=== PATIENT | female | born 1975 | race Caucasian/White ===

== ENCOUNTER → 2017-12-16 13:23 | Outpatient (CLI) | payer OTHER, SELFPAY ==
--- NOTE | 2017-12-16 | DI.MG.S_ITS ---
BILATERAL DIGITAL SCREENING MAMMOGRAM 3D/2D WITH CAD: 12/16/2017 CLINICAL: Routine screening. No prior exams were available for comparison. The tissue of both breasts is extremely dense, which lowers the sensitivity of mammography. Current study was also evaluated with a Computer Aided Detection (CAD) system. No significant masses, calcifications, or other findings are seen in either breast. IMPRESSION: NEGATIVE There is no mammographic evidence of malignancy. A 1 year screening mammogram is recommended. This exam was interpreted at Station ID: [id number]. NOTE: For mammograms, a report in lay terms will be sent to the patient. Approximately 15% of breast malignancies will not be visualized mammographically. In the management of a palpable breast mass, a negative mammogram must not discourage biopsy of a clinically suspicious lesion. Electronically Signed By: Tucker varghese/aelxy:12/16/2017 14:33:49 copy to: Lillie Orozco md, [facility] letter sent: Normal Exam ACR BI-RADS Category 1: Negative 3341F
== END ==
PROVIDERS: Family Provider Family Medicine; Visit Provider Family Medicine
DX: Z12.31 Encounter for screening mammogram for malignant neoplasm of breast (principal)
CPT/HCPCS: 77063; 77067

== ENCOUNTER → 2019-06-05 10:58 | Outpatient (CLI) | payer OTHER, SELFPAY ==
--- NOTE | 2019-06-05 | DI.RAD.S_ITS ---
PROCEDURE: XR CHEST 2V INDICATIONS: Other chest pain TECHNIQUE: 2 views of the chest were acquired. COMPARISON: None. FINDINGS: Surgical changes and devices: None. Lungs and pleura: Lungs are clear. No pleural effusions or pneumothorax. Mediastinum: Mediastinal contours are normal. Heart size is normal. Bones and chest wall: No suspicious bony abnormalities. Soft tissues appear unremarkable. IMPRESSION: No acute pulmonary process. Dictated by: Kaci Kim M.D. on 06/05/2019 at 16:10 Approved by: Kaci Kim M.D. on 06/05/2019 at 16:10
== END ==
PROVIDERS: Family Provider Family Medicine; PCP Family Medicine; Visit Provider Family Medicine
DX: R07.89 Other chest pain (principal)
CPT/HCPCS: 71046

== ENCOUNTER → 2020-03-08 11:34 | Outpatient (CLI) | payer OTHER, SELFPAY ==
[2020-03-09 19:07] LABS: COVID19 Sendout Not Detected (Not Detect)
== END ==
PROVIDERS: Family Provider Family Medicine; PCP Family Medicine; Visit Provider Physician Assistant
DX: Z11.59 Encounter for screening for other viral diseases (principal)
CPT/HCPCS: 87635

== ENCOUNTER 2020-03-11 08:47 | Day surgery (SDC) | payer OTHER, SELFPAY ==
--- NOTE | 2020-03-11 | PATH_ITS ---
[facility] Accession Number: [id number] . 01 Material submitted: . PART A: duodenum - DUODENUM PART B: stomach - STOMACH PART C: esophagus - DISTAL ESOPHAGUS . 02 Diagnosis: A. Duodenum, Biopsy: Duodenal mucosa with no diagnostic abnormality. Negative for active inflammation, features of sprue, dysplasia, or malignancy. . B. Stomach, Biopsy: Antral mucosa with mild chronic gastritis. Negative for Helicobacter by immunohistochemistry. Negative for intestinal metaplasia. Negative for dysplasia and malignancy. . C. Distal Esophagus, Biopsy: Squamocolumnar junctional mucosa with no diagnostic abnormality. Negative for intestinal metaplasia. Negative for dysplasia and malignancy. [facility] 03/15/2020 1641 Local . 02 Electronically signed: . Naheed Vega MD, Pathologist NPI- [id number] . 01 Gross description: . Part A: DUODENUM: Received in formalin are 2 fragment(s) of delacruz, soft tissue measuring 0.3 x 0.2 x 0.2 cm to 0.1 x 0.1 x 0.1 cm submitted entirely in 1 cassette(s) Part B: STOMACH: Received in formalin are 2 fragment(s) of delacruz, soft tissue measuring 0.4 x 0.1 x 0.1 cm to 0.3 x 0.2 x 0.2 cm submitted entirely in 1 cassette(s) Part C: DISTAL ESOPHAGUS: Received in formalin is 1 fragment(s) of delacruz, soft tissue measuring 0.3 x 0.2 x 0.2 cm submitted entirely in 1 cassette(s) /QBJ 03/12/2020 0710 Local . 02 Microscopic: . B. An immunohistochemical stain was performed to evaluate for Helicobacter organisms and is negative. The control stain showed appropriate reactivity. . C. An Alcian blue stain was performed to evaluate for intestinal metaplasia and is negative. The control stain showed appropriate reactivity. . * This test was developed and its performance characteristics determined by [facility]. It has not been cleared or approved by the U.S. Food and Drug Administration. The FDA has determined that such clearance or approval is not necessary. This test is used for clinical purposes. It should not be regarded as investigational or for research. . 02 Pathologist provided ICD-10: R10.13 . 02 CPT . 401139, 216724, 598942, 934133, [id number] Performed at: 01 [facility] [address] [place] [address], [place], [place] [id number] MD Tucker Francisco MD Phone: [phone] Performed at: 02 [facility] [id number] [place] [id number] MD Naheed Vega MD Phone: [phone]
--- NOTE | 2020-03-11 08:58 | PM.PREOP ---
Pre-operative Note COVID-19 COVID-19 status: Negative Result date/Date tested (Pos, Neg/Pending): 03/08/20 Interval Note History & Physical reviewed/Exam performed by Physician: Yes Changes to H&P: No ASA Class (for procedural sedation): I
[2020-03-11 09:03] VITALS: BP 117/81; PULSE 65; RESP 18; TEMP 36.7; O2SAT 99; BMI 25.2
--- NOTE | 2020-03-11 09:30 | PM.OP.ENDO ---
Operative Date/Time/Diagnoses Date of procedure: 03/11/20 Time of procedure: 09:30 Pre-op diagnosis: Epigastric pain, heartburn Post-op diagnosis: other (Mild gastritis, low-grade hiatal hernia, mild esophagitis) Procedure & Clinicians Study performed: EGD with cold forceps biopsies of duodenum stomach and this esophagus Same procedure as scheduled: Yes Indications: Epigastric pain, heartburn Surgeon: Irma Da Silva Procedure Notes SCOAP/Timeout: Performed Procedure in detail: The patient was brought to the room and placed in left lateral decubitus position with all bony prominences padded. A bite block was positioned in the patient's mouth to protect the lips, teeth, and tongue for the procedure. A time-out was performed and then the patient was given procedural sedation starting with 2 mg of Versed and 100 mcg of fentanyl. Total of 3 mg of Versed and 100 micro g of fentanyl were given for the entire procedure. Vitals were monitored throughout the procedure and remained stable. Once adequately sedated, the procedure was begun. The lubricated gastroscope was passed through the bite block and across the tongue and into the esophagus without incident. A tubular view of the esophagus was maintained as the scope was advanced through the esophagus and into the stomach. The scope was advanced through the stomach and to the pylorus. The scope was gently popped through the pylorus and into the duodenal bulb. The scope was flexed and advanced into the second and third portions of the duodenum. The duodenum and duodenal bulb appeared normal. The scope was withdrawn into the stomach. The stomach showed evidence of ecod-to-ihlgubbh endoscopic gastritis, with no ulcers or active bleeding. The scope was retroflexed and the gastric cardia was examined. The hiatus showed evidence of a low-grade hiatal hernia, Hill grade 1-2 without any ulceration. The scope was then straightened, and withdrawn into the esophagus. The Z-line had no breaks in it. The distal esophageal mucosa appeared intact. Biopsies were taken of the duodenum, stomach, distal esophagus. The scope was then withdrawn through the esophagus with a tubular view. The scope was then withdrawn from the patient the procedure was concluded. The patient tolerated the procedure well and was transferred to the PACU in stable condition. Sedation minutes: 8 Findings: gastritis and hiatal hernia (Low-grade, Hill grade 1-2) Specimen(s): other (Biopsy of duodenum, stomach, distal soft) Impression: Moderate gastritis, low-grade distal esophagitis, low-grade hiatal hernia Post-procedure Recommendations: Start medication(s) (Omeprazole 20 mg b.i.d.) Plan for aftercare: Start PPI. Follow-up in 2 week to discuss biopsy results. Follow up: weeks (2) Disposition: PACU
[2020-03-11 09:43] VITALS: BP 105/75; PULSE 65; RESP 8; TEMP 36.4; O2SAT 94
[2020-03-11] MEDS: MIDAZOLAM 5 MG/5 ML VIAL IV (09:43)
[2020-03-11] MEDS: LIDOCAINE 4% SOLN 50 ML 20 ML TOP (09:44)
[2020-03-11] MEDS: fentaNYL 250 MCG/5 ML INJ IV (09:44)
[2020-03-11 09:48] VITALS: BP 98/67; PULSE 61; RESP 8; TEMP 36.4; O2SAT 94
[2020-03-11 09:53] VITALS: BP 93/64; PULSE 94; RESP 9; TEMP 36.3; O2SAT 95
[2020-03-11 10:04] VITALS: BP 105/76; PULSE 56; RESP 12; TEMP 35.8; O2SAT 96
[2020-03-11 10:48] VITALS: BP 108/69; PULSE 62; RESP 14; TEMP 36.4; O2SAT 100
== END 2020-03-11 10:55 | disposition home or self-care (01) ==
PROVIDERS: Family Provider Family Medicine; PCP Family Medicine; Referring Provider Family Medicine; Visit Provider Surgery
PROC: 0DJ08ZZ Inspection of Upper Intestinal Tract, Via Natural or Artificial Opening Endoscopic (ICD-10-PCS; CPT 43235; principal; 2020-03-11 10:00)
DX: K29.50 Unspecified chronic gastritis without bleeding (principal); K20.9 Esophagitis, unspecified; K44.9 Diaphragmatic hernia without obstruction or gangrene
CPT/HCPCS: 43239; 99152; J2250; J3010

== ENCOUNTER → 2022-02-22 13:51 | Outpatient (CLI) | payer OTHER, SELFPAY ==
--- NOTE | 2022-02-22 | DI.US.S_ITS ---
PROCEDURE: US PELVIC COMPLETE INDICATIONS: Dysmenorrhea, unspecified TECHNIQUE: Real-time scanning was performed of the pelvic organs, with image documentation. Additional endovaginal scanning was necessary due to incomplete visualization of the adnexal and endometrial structures by transabdominal scanning. COMPARISON: [facility], CT, CT ABDOMEN PELVIS WITH CONTRAST, 02/08/2020, 17:33. FINDINGS: Uterus: Uterus is anteverted and normal in size at 8.5 x 5.1 x 4.1 cm. The myometrium is homogeneous. 2 sub 5 mm myometrial cyst. The endometrium measures 7.1 mm combined thickness. Ovaries: The right ovary measures 3.5 x 2.6 x 1.2 cm, with a calculated ovarian volume of 5.7 cc. The left ovary measures 3.0 x 2.9 x 1.1 cm, with a calculated ovarian volume of 5.0 cc. The ovaries have a normal sonographic appearance. Less than 12 follicles can be seen in each ovary. No adnexal masses are seen. Other: No pathologic free abdominal or pelvic fluid. IMPRESSION: 1. No source for dysmenorrhea identified. 2. 2 sub 5 mm myometrial cyst. 3. Normal appearance of the ovaries bilaterally. We strive to produce accurate, complete, and clear reports of imaging services. To assist us in improving patient care, this report was composed using standard report templates and voice recognition software. Therefore, it may contain abnormal punctuation, insertions and/or omissions. Occasional wrong-word or sound-alike substitutions may occur. Though we review the report and make efforts to correct it, we do recommend that the report be read carefully in proper context to recognize any text inaccuracies. Dictated by: Alberto MARCANO Interpreted: Kaci Kim MD on 02/22/2022 at 15:44 Transcribed by: YANNA on 02/22/2022 at 15:45 Approved by: Kaci Kim M.D. on 02/22/2022 at 17:28
== END ==
PROVIDERS: Family Provider Family Medicine; PCP Family Medicine; Referring Provider Family Medicine; Visit Provider Family Medicine
DX: N94.6 Dysmenorrhea, unspecified (principal); N85.8 Other specified noninflammatory disorders of uterus
CPT/HCPCS: 76830; 76856

== ENCOUNTER → 2022-10-10 09:44 | Outpatient (CLI) | payer OTHER, SELFPAY ==
--- NOTE | 2022-10-10 09:47 | DI.RAD.S_ITS ---
PROCEDURE: XR CERVICAL SPINE 2V OR 3V INDICATIONS: neck pain TECHNIQUE: 3 view(s) of the cervical spine were acquired. COMPARISON: None. FINDINGS: Bones: No fractures or dislocations to the C1 level. The lateral masses of C1 appear intact on the odontoid view. No suspicious bony lesions. Minimal spondylitic change. Soft tissues: No prevertebral soft tissue swelling. IMPRESSION: Minimal spondylitic change. Dictated by: Sagar Jaramillo M.D. on 10/10/2022 at 12:09 Approved by: Sagar Jaramillo M.D. on 10/10/2022 at 12:09
== END ==
PROVIDERS: Family Provider Family Medicine; PCP Family Medicine; Referring Provider Family Medicine; Visit Provider Family Medicine
DX: M54.2 Cervicalgia (principal)
CPT/HCPCS: 72040

== ENCOUNTER → 2023-05-16 10:21 | Outpatient (CLI) | payer OTHER, SELFPAY ==
--- NOTE | 2023-05-16 | DI.US.S_ITS ---
PROCEDURE: US THYROID INDICATIONS: NONTOXIC GOITER TECHNIQUE: Real-time scanning was performed of the thyroid gland, with image documentation. COMPARISON: None. FINDINGS: Right: Thyroid lobe measures 5.5 x 1.6 x 1.7 cm, and is homogeneous in echotexture. Left: Thyroid lobe measures 4.6 x 1.5 x 1.8 cm, and is homogenous in echotexture. Isthmus: 2.0 mm thick. No thyroid nodules or masses are demonstrated. IMPRESSION: Normal thyroid ultrasound. ACR TI-RADS definitions and recommendations: TI-RADS 1 (benign): 0 points. FNA not needed. TI-RADS 2 (not suspicious): 2 points. FNA not needed. TI-RADS 3 (mildly suspicious): 3 points. * FNA if 2.5 cm or larger, follow up if 1.5 cm or larger (at 1, 3, and 5 years). TI-RADS 4 (moderately suspicious): 4-6 points. * FNA if 1.5 cm or larger, follow up if 1 cm or larger (at 1, 2, 3, and 5 years). TI-RADS 5 (highly suspicious): 7 points or more. * FNA if 1 cm or larger, follow up if 0.5 cm or larger (every year for 5 years). Dictated by: Mounika Garduno MD, PhD on 05/16/2023 at 13:20 Approved by: Mounika Garduno MD, PhD on 05/16/2023 at 13:21
== END ==
PROVIDERS: Family Provider Family Medicine; PCP Family Medicine; Referring Provider Family Medicine; Visit Provider Family Medicine
DX: E04.9 Nontoxic goiter, unspecified (principal)
CPT/HCPCS: 76536

== ENCOUNTER → 2024-12-10 17:20 | Outpatient (CLI) | payer OTHER, SELFPAY ==
--- NOTE | 2024-12-10 17:26 | DI.MG.S_ITS ---
MM screening mammo BI: 12/10/2024. BI-RADS: 1 CLINICAL: 49-year old female for bilateral screening mammogram. Tyrer-Cuzick lifetime risk of 11.2%. No personal or first-degree family history of breast cancer. PRIOR EXAMS 12/16/2017. MAMMOGRAPHY TECHNIQUE: 2D and 3D (tomosynthesis) digital mammographic views obtained, with additional images as needed for full coverage. Current study was also evaluated with a Computer Aided Detection (CAD) system. DENSITY C. The breasts are heterogeneously dense, which may obscure small masses. MAMMOGRAPHY FINDINGS Bilateral: No suspicious mass, asymmetry, microcalcification, or other abnormality seen. IMPRESSION: * No evidence of malignancy. RECOMMENDATIONS Bilateral * Annual screening mammography. OVERALL ASSESSMENT CATEGORY BI-RADS-1: Negative. The [employer] recommends annual screening mammography beginning at age 40 for women with average risk of breast cancer. ELECTRONICALLY SIGNED: Ismael Wang M.D. on 12/11/2024 at 07:59:10 AM PT Interpreting Station ID: [id number]
== END ==
PROVIDERS: Family Provider Family Medicine; PCP Family Medicine; Referring Provider Family Medicine; Visit Provider Family Medicine
DX: Z12.31 Encounter for screening mammogram for malignant neoplasm of breast (principal); R92.333 Mammographic heterogeneous density, bilateral breasts
CPT/HCPCS: 77063; 77067

== ENCOUNTER 2025-07-09 23:02 | Emergency (ER) | payer OTHER, SELFPAY ==
[2025-07-09 23:04] VITALS: BP 120/78; PULSE 95; RESP 18; TEMP 36.6; O2SAT 97; BMI 27.3
[2025-07-09 23:31] LABS: Culture Indicated Urine Cult Not Indicated
[2025-07-10 00:21] VITALS: BP 121/83; PULSE 92; RESP 16; O2SAT 93
[2025-07-10 00:30] VITALS: BP 118/84; PULSE 90; RESP 14; O2SAT 95
[2025-07-10 00:37] LABS: Add Manual Diff / Slide Review NO; Hematocrit 39.8 % (36-46); Hemoglobin 13.8 g/dL (12.0-16.0); Lymphocytes Absolute Auto 3000 /uL (1100-4500); Mean Corpuscular HGB Conc 34.6 % (30-36); Mean Corpuscular Hemoglobin 31.1 PG (26-34); Mean Corpuscular Volume 89.9 fL (80-100); Platelet Count 302 X10^3/uL (150-400)
[2025-07-10 01:00] LABS: Alanine Aminotransferase 28 IU/L (<35); Albumin 4.4 g/dL (3.5-5.0); Albumin Globulin Ratio 1.3 (1.0-2.8); Alkaline Phosphatase 72 U/L (38-126); Blood Urea Nitrogen 13 mg/dL (7-17); Calcium 9.1 mg/dL (8.4-10.2); Carbon Dioxide 21 mmol/L (22-32); Chloride 107 mmol/L (98-107); Estimated Glomerular Filt Rate > 60 mL/min (>60); Globulin 3.5 g/dL (1.7-4.1); Glucose 122 mg/dL (70-99); HEMOLYSIS < 15 (0-50); Lipase 57 U/L (23-300); Potassium 3.7 mmol/L (3.4-5.1); Sodium 139 mmol/L (137-145); Total Protein 7.9 g/dL (6.3-8.2)
--- NOTE | 2025-07-10 01:03 | ED_ITS ---
HPI - Abdominal Pain General Chief Complaint: Abdominal Pain Stated Complaint: Lower abd pain Time Seen by Provider: 07/09/25 23:13 Source: patient Mode of arrival: Ambulatory History of Present Illness HPI narrative: 49-year-old female with history of remote cholecystectomy, no other abdominopelvic surgeries recalled, no history of kidney stones, not currently on antibiotics, complains of right greater than left lower abdominal discomfort, not associated with frequency or painful urination, no flank or back pain, no cough chest pain shortness of breath, no fevers or chills. History of gastritis, prescribed omeprazole in the past, noted on triage med list if still current. No history of colitis or diverticulitis of the colon recalled, no history of Crohn's disease or inflammatory bowel disease on problem list. No injury trauma or new activities. Related Data Home Medications ?Medication ?Instructions ?Recorded ?Confirmed ascorbic acid (vitamin C) 100 mg 100 mg PO DAILY 09/0306/28/20 tablet clxhvyb-isrxgypnofkit-dxgemvrp 250 2 tab PO Q6H PRN Ab dominal 09/03/19 06/28/20 mg-250 mg-65 mg tablet (Excedrin Discomfort Extra Strength) famotidine 10 mg tablet (Pepcid AC) 10 mg PO DAILY 01/1506/28/20 omega-3 fatty acids 1,000 mg 1,000 mg PO DAILY 0 06/28/20 capsule (Fish Oil Concentrate) propranolol 80 mg capsule,24 80 mg PO DAILY 09/03/19 1 08/29/19 hr,extended release Previous Rx's ?Medication ?Instructions ?Recorded omeprazole 40 mg capsule,delayed 40 mg PO DAILY #30 ca ps 03/14/20 release cefdinir 300 mg capsule 300 mg PO BID 10 days #20 ca ps 07/10/25 Allergies Allergy/AdvReac Type Severity Reaction Status Date / Time No Known Drug Allergies Allergy Verified 07/09/25 23:04 Patient History Medical History (Updated 07/10/25 @ 02:27 by Timbo Andrade MD) Migraine Surgical History Hx of cholecystectomy Family History Father Hypertension Social History marital status: household members: spouse and children occupational status: employed Smoking Status: Never smoker alcohol intake: never substance use type: does not use Smoking Status: Never smoker Exam Narrative Exam Narrative: GENERAL: Well-developed patient, in mild distress. HEAD: Atraumatic. Normocephalic. EYES: Pupils equal round and reactive. Extraocular motions intact. No scleral icterus. No injection or drainage. ENT: No obvious craniofacial injuries or redness or swelling. Moves neck well. CARDIOVASCULAR: Regular rate and rhythm without murmurs, gallops, or rubs. RESPIRATORY: Clear to auscultation. Breath sounds equal bilaterally. No wheezes, rales, or rhonchi. GASTROINTESTINAL: Nondistended, some tenderness right lower quadrant, less tenderness left lower quadrant but some present. Suprapubic area discomfort on palpation. No guarding or rebound tenderness. Bowel tones unremarkable, without rushes or tinkles. EXTREMITIES: No edema or joint tenderness. BACK: Nontender without deformity or crepitance. No flank tenderness. NEURO: AOx3. Motor functions grossly nonfocal. SKIN: No rash or erythema of visible areas Initial Vital Signs Initial Vital Signs: Vital Signs Temperature 97.8 F 07/09/25 23:04 Pulse Rate 95 H 07/09/25 23:04 Respiratory Rate 18 07/09/25 23:04 Blood Pressure 120/78 07/09/25 23:04 Pulse Oximetry 97 07/09/25 23:04 Oxygen Delivery Method Room Air 07/09/25 23:04 Course Orders Ordered: ED Orders 07/09/25 23:10 Complete Blood Count AUTO DIFF Stat Comprehensive Metabolic Panel Stat Lipase Stat Urine Culture Stat Urine Microscopic Stat EKG-12 Lead Stat 07/10/25 01:15 CT abdomen pelvis w con Stat Discontinued Medications Hydrocodone Bitart/Acetaminophen (Hydrocodone/Acet 5/325 Prepack) 1 bottle MISC DIRECTED ONE Stop: 07/10/25 02:42 Last Admin: 07/10/25 02:45 Dose: 1 bottle Documented By: URIAH Ceftriaxone Sodium 1,000 mg/ (Sodium Chloride) 100 mls @ 200 mls/hr IV NOW ONE Stop: 07/10/25 00:01 Last Infusion: 07/10/25 01:01 Dose: Infused Documented By: Admin: 07/10/25 00:27 Dose: 200 mls/hr Documented By: URIAH Sodium Chloride (Normal Saline 0.9%) 1,000 mls @ 1,000 mls/hr IV BOLUS ONE Stop: 07/10/25 02:28 Last Infusion: 07/10/25 02:43 Dose: Infused Documented By: Admin: 07/10/25 01:42 Dose: 1,000 mls/hr Documented By: URIAH Ondansetron HCl (Ondansetron 4 Mg/2 Ml Inj) 4 mg IV NOW PRN PRN Reason: Nausea And Vomiting Ondansetron HCl (Ondansetron 4 Mg Odt) 4 mg PO NOW PRN PRN Reason: Nausea And Vomiting Ondansetron HCl (Ondansetron 4 Mg Odt Prepack) 1 bottle MISC DIRECTED ONE Stop: 07/10/25 02:42 Last Admin: 07/10/25 02:45 Dose: 1 bottle Documented By: URIAH Vital Signs Vital signs: Vital Signs - 8 hr 07/09/25 23:04 07/10/25 00:21 07/10/25 00:21 Temperature 97.8 F Pulse Rate 95 H 92 H Respiratory Rate 18 16 Blood Pressure 120/78 121/83 Pulse Oximetry 97 93 Oxygen Delivery Method Room Air Room Air 07/10/25 00:30 07/10/25 00:30 Temperature Pulse Rate 90 Respiratory Rate 14 Blood Pressure 118/84 Pulse Oximetry 95 Oxygen Delivery Method Room Air MDM - Abdominal Pain Lab Data Attestation: I reviewed the patient's lab results. Lab results narrative: White blood cell count 72921, hemoglobin 13.8, platelets adequate. Glucose 122. Normal renal function, electrolytes, with serum CO2 21 slight decreased. Urinalysis shows bacteriuria, no squamous cells, no red cells, no white cells, leukocyte esterase was positive, no lab trigger for urine culture but urine culture was requested. 07/10/25 00:21 07/10/25 00:21 Labs: Lab Results 07/09/25 07/10/25 Range/Units 23:10 00:21 WBC 19.2 H (4.5-11.0) X10^3/uL RBC 4.43 (4.0-5.2) X10^6/uL Hgb 13.8 (12.0-16.0) g/dL Hct 39.8 (36-46) % MCV 89.9 (80-100) fL MCH 31.1 (26-34) PG MCHC 34.6 (30-36) % RDW 12.5 (11.6-14.8) % Plt Count 302 (150-400) X10^3/uL Neut % (Auto) 74.8 (50-75) % Lymph % (Auto) 15.4 L (25-40) % [place] % (Auto) 8.3 (3-14) % Eos % (Auto) 0.8 L (2-4) % Baso % (Auto) 0.7 (0-2) % Neut # (Auto) 33112 H (0000-6373) /uL Lymph # (Auto) 3000 (5392-3364) /uL [place] # (Auto) 1600 H (0-900) /uL Eos # (Auto) 100 (0-450) /uL Baso # (Auto) 100 (0-100) /uL Sodium 139 (137-145) mmol/L Potassium 3.7 (3.4-5.1) mmol/L Chloride 107 (98-107) mmol/L Carbon Dioxide 21 L (22-32) mmol/L BUN 13 (7-17) mg/dL Creatinine 0.71 (0.52-1.04) mg/dL Estimated GFR > 60 (>60) mL/min BUN/Creatinine Ratio 18.3 (6-22) Glucose 122 H (70-99) mg/dL Calcium 9.1 (8.4-10.2) mg/dL Total Bilirubin 0.8 (0.2-1.3) mg/dL AST 27 (14-36) IU/L ALT 28 (<35) IU/L Alkaline Phosphatase 72 (38-126) U/L Total Protein 7.9 (6.3-8.2) g/dL Albumin 4.4 (3.5-5.0) g/dL Globulin 3.5 (1.7-4.1) g/dL Albumin/Globulin Ratio 1.3 (1.0-2.8) Lipase 57 (23-300) U/L Urine RBC None seen (0-5/HPF) Urine WBC 5-10/hpf H (0-5/HPF) Ur Squamous Epith Cells 0-1 /hpf (0-5/HPF) Urine Bacteria Moderate (10-30) H (None) Ur Culture Indicated? Cult not indicated Vol Urine Centrifuged 10ml (spun) Point of care testing: Point of Care Testing Test Results Negative Urine Dip Bedside Urine Glucose Negative Bedside Urine Bilirubin - Negative Bedside Urine Ketone - Negative Urine Specific [place] 1.010 Bedside Urine Occult Blood - Negative Bedside Urine pH 6.5 Bedside Urine Protein - Negative Bedside Urine Urobilinogen - Negative Bedside Urine Nitrite - Negative Bedside Urine Leukocytes + [address] scan - abdomen/pelvis: Radiologist's Impression: Eda Ortiz??49??F??1975 ? Allergy/Adv: No Known Drug Allergies [address] [address] [address] Scan Report Signed Patient: Eda Ortiz MR#: [id number] : 1975 Acct:[id number] Age/Sex: 49 / F Date of Service: 07/10/25 Loc: ED Accession Number: [id number] Procedure: CT abdomen pelvis w con Ordering Provider: Timbo Andrade MD PROCEDURE: CT ABDOMEN PELVIS W CON INDICATIONS: lower abd pain TECHNIQUE: After the administration of intravenous contrast, axial sections acquired from the lung bases to the pubic symphysis. Coronal and sagittal reformats were performed. For radiation dose reduction, the following was used: automated exposure control, adjustment of mA and/or kV according to patient size. COMPARISON: None. FINDINGS: Image quality: Diagnostic. Lower Chest: No significant findings. ABDOMEN: Liver: No solid mass. Gallbladder: Absent. Surgical clips along the inferior margin of the right hepatic lobe. Biliary ducts: No biliary dilation. Pancreas: No ductal dilation. Spleen: Size is within normal limits. Adrenal Glands: No adrenal nodules. Kidneys and Ureters: No hydronephrosis. No solid mass. No complex renal cystic lesion which requires follow up. Punctate nonobstructing right-sided nephrolithiasis. Stomach and Bowel: Normal colonic caliber, without significant wall thickening. Fecal debris within the small bowel. Normal appendix. No significant diverticular disease. Peritoneum: No abnormal intraperitoneal fluid. No free air. Ventral Wall: No significant ventral hernia. Abdominal Nodes: No retroperitoneal or mesenteric adenopathy by size criteria. Vessels: Aorta and inferior vena cava are normal in size. PELVIS: Pelvic Organs: Unremarkable. Bladder: No bladder wall thickening, accounting for underdistention. Pelvic Nodes: No enlarged lymph nodes. Miscellaneous: No inguinal hernias are seen. Bones: No aggressive osseous abnormality. IMPRESSION: No acute abnormality. No significant diverticular disease. Normal appendix. Absent gallbladder. No hydronephrosis. Punctate nonobstructing right-sided nephrolithiasis. Dictated by: Ranjit Jackson M.D. on 07/10/2025 at 1:56 Approved by: Ranjit Jackson M.D. on 07/10/2025 at 1:[address] [facility] Narrative Medical decision making narrative: 49-year-old female with lower abdominal discomfort, afebrile on triage, right lower quadrant mild tenderness, more so than left lower quadrant tenderness. Afebrile, sirs screen negative. No CVA region tenderness, lungs clear. IV ceftriaxone after urine culture requested, coverage for urinary tract infection if present. DX consider UTI, obstructing ureteral stone, complicated urinary tract infection, appendicitis, colitis, diverticulitis, PID, ovarian cyst/rupture, ovarian torsion, other. Pain medication offered, declined for now. Keep NPO for now. Lab data: White blood cell count 39411, hemoglobin 13.8, platelets adequate. Glucose 122. Normal renal function, electrolytes, with serum CO2 21 slight decreased. Urinalysis shows bacteriuria, no squamous cells, no red cells, no white cells, leukocyte esterase was positive, no lab trigger for urine culture but urine culture was requested. White blood cell count 19,000 elevated, IV ceftriaxone given for possible urinary tract infection, we discussed advanced imaging, CT abdomen and pelvis imaging to screen for obstructing urinary stone or some other acute abdominopelvic process. CT shows no acute process, there was mentioned of right-sided kidney stone punctate only in size, no hydroureter. See radiology report. It is possible there could have been another punctate small right-sided kidney stone that has recently passed. Urine suspicious for infection, not otherwise complicated. White blood cell count a bit elevated, we will treat for upper tract infection. IV ceftriaxone given prior. We will send prescription to requested pharmacy for cefdinir 10 day course. Recheck with PCP on [facility] on Saturday advised, to check urine culture and review of her symptoms. Home pack of hydrocodone/APAP to use as needed for pain control. Home pack of ODT ondansetron to use as needed for nausea control. Discharged home with , they will returned to home [facility] on later this morning. Follow up with PCP Saturday on [facility] as advised above. Return to this/nearest emergency department for any change worsening symptoms or any concerns prior. Discharge Plan Departure Patient Disposition: Home Clinical Impression: Urinary tract infection, Nephrolithiasis Instructions: DI for Kidney Stones, DI for Urinary Tract Infection (UTI) Activity Restrictions/Additional Instructions: Lower abdominal discomfort, no fever, no known trauma. Some tenderness to the right lower quadrant abdomen, but also some to the left lower quadrant. Urine dip positive suspicious for infection, subsequent urinalysis evaluation by laboratory was suspicious for possible infection, urine culture was requested. IV antibiotics initiated ceftriaxone for possible urine infection was initiated. White blood cell count was found to be elevated, we discussed advanced imaging, CT scan abdomen and pelvis was ordered. There was no definite acute process identified by the CT scan, however there was mentioned of a punctate kidney stone within the right kidney, but no obstructing stone or process within the contiguous ureter between the kidney in the bladder on that side. There was no mentioned of any bowel obstruction, bowel inflammation, constipation, pelvic process of concern. It could theoretically be possible that you might have passed another small punctate stone causing some of your discomfort, that did not cause dilation of the ureter, and would not likely be visible in the bladder, or might have already been passed out of the bladder. We will treat for upper tract urine infection for now with broader spectrum and longer course of oral antibiotic, given your elevated white blood cell count, which would not be expected with simple bladder infection. Antibiotic cefdinir prescription sent to your requested pharmacy, 10 day course, take antibiotics as directed, drink plenty of fluids. Consider use of [id number] Tylenol and or Motrin as needed for pain control. If you need additional pain control, or control of any nausea, home pack of hydrocodone/acetaminophen was provided, and home pack of oral dissolvable formulation ondansetron was provided. Recheck symptoms with your regular doctor on Saturday, your urine culture results should be available at that time. Return to this/nearest emergency department for any change worsening symptoms or any concerns prior. Prescriptions: New cefdinir 300 mg capsule 300 mg PO BID 10 Days Qty: 20 0RF No Action omeprazole 40 mg capsule,delayed release(DR/EC) 40 mg PO DAILY Qty: 30 3RF ascorbic acid (vitamin C) 100 mg tablet 100 mg PO DAILY omega-3 fatty acids [Fish Oil Concentrate] 1,000 mg capsule 1,000 mg PO DAILY propranolol 80 mg capsule,extended release 24 hr 80 mg PO DAILY Excedrin Extra Strength 250-250-65 mg tablet 2 tab PO Q6H PRN (Reason: Abdominal Discomfort) famotidine [Pepcid AC] 10 mg tablet 10 mg PO DAILY Referrals: Meghan Avila MD [Primary Care Provider, Family Practice] Stand Alone Forms: Patient Portal/API
--- NOTE | 2025-07-10 01:15 | DI.CT.S_ITS ---
PROCEDURE: CT ABDOMEN PELVIS W CON INDICATIONS: lower abd pain TECHNIQUE: After the administration of intravenous contrast, axial sections acquired from the lung bases to the pubic symphysis. Coronal and sagittal reformats were performed. For radiation dose reduction, the following was used: automated exposure control, adjustment of mA and/or kV according to patient size. COMPARISON: None. FINDINGS: Image quality: Diagnostic. Lower Chest: No significant findings. ABDOMEN: Liver: No solid mass. Gallbladder: Absent. Surgical clips along the inferior margin of the right hepatic lobe. Biliary ducts: No biliary dilation. Pancreas: No ductal dilation. Spleen: Size is within normal limits. Adrenal Glands: No adrenal nodules. Kidneys and Ureters: No hydronephrosis. No solid mass. No complex renal cystic lesion which requires follow up. Punctate nonobstructing right-sided nephrolithiasis. Stomach and Bowel: Normal colonic caliber, without significant wall thickening. Fecal debris within the small bowel. Normal appendix. No significant diverticular disease. Peritoneum: No abnormal intraperitoneal fluid. No free air. Ventral Wall: No significant ventral hernia. Abdominal Nodes: No retroperitoneal or mesenteric adenopathy by size criteria. Vessels: Aorta and inferior vena cava are normal in size. PELVIS: Pelvic Organs: Unremarkable. Bladder: No bladder wall thickening, accounting for underdistention. Pelvic Nodes: No enlarged lymph nodes. Miscellaneous: No inguinal hernias are seen. Bones: No aggressive osseous abnormality. IMPRESSION: No acute abnormality. No significant diverticular disease. Normal appendix. Absent gallbladder. No hydronephrosis. Punctate nonobstructing right-sided nephrolithiasis. Dictated by: Ranjit Jackson M.D. on 07/10/2025 at 1:56 Approved by: Ranjit Jackson M.D. on 07/10/2025 at 1:59
[2025-07-10] MEDS: SODIUM CHLORIDE 0.9% 1,000 ML 1000 ML IV (01:42)
[2025-07-10] MEDS: ONDANSETRON 4 MG ODT PREPACK 1 BOTTLE MISC (02:45)
--- NOTE | 2025-07-10 02:46 | PC.NURSE ---
Pt ambulatory to restroom without difficulty or assistance
== END 2025-07-10 02:53 | disposition home or self-care (01) ==
PROVIDERS: Emergency Provider Emergency Medicine; Family Provider Family Medicine; PCP Family Medicine
DX: N20.0 Calculus of kidney (principal); N39.0 Urinary tract infection, site not specified
CPT/HCPCS: 36415; 74177; 80053; 81003; 81015; 81025; 83690; 85025; 87086; 96361; 96365; 99284; J0696; J7030; J7050; Q9967